=== PATIENT | female | born 1990 | race Caucasian/White ===

== ENCOUNTER 2017-05-03 18:52 | Emergency (ER) | payer SELFPAY ==
[2017-05-03 19:13] VITALS: BP 105/57; PULSE 104; TEMP 98; BMI 26.7
[2017-05-03] MEDS ORDERED: ACETAMINOPHEN 325 MG TABLET (FP) PO ONE (19:51)
--- NOTE | 2017-05-03 19:56 | PDOC ---
History of Present Illness - General Chief Complaint: Abscess Boil Stated Complaint: ABSCESS BOIL/11 WKS Time Seen by Provider: 05/03/17 19:17 - History of Present Illness Initial Comments: 05/03/17 19:52 CHIEF COMPLAINT: bump HISTORY OF PRESENT ILLNESS: 27 yo 11 week F presents to fast track with "bump to vagina." Patient reports pain to R side of vagina x 2 days. She states "when I was pushing it earlier there was pus coming out." PAST MEDICAL HISTORY: Denies past medical history FAMILY HISTORY: Denies SOCIAL HISTORY:Denies tobacco, alcohol, illicit drug use. SURGICAL HISTORY: Denies ALLERGIES: shellfish REVIEW OF SYSTEMS General/Constitutional: Denies fever or chills. Denies weakness, weight change. HEENT: Denies change in vision. Denies ear pain or discharge. Denies sore throat. Cardiovascular: Denies chest pain or shortness of breath. Respiratory: Denies cough, wheezing, or hemoptysis. Gastrointestinal: Denies nausea, vomiting, diarrhea or constipation. Denies rectal bleeding. Genitourinary: Bump to vagina. Denies dysuria, frequency, or change in urination. Musculoskeletal: Denies joint or muscle swelling or pain. Denies neck or back pain. Skin: Denies rash or easy bruising. Neurologic: Denies headache, vertigo, loss of consciousness, or loss of sensation. PHYSICAL EXAM General Appearance: Well-appearing, appropriately dressed. No apparent distress. HEENT: EOMI, PERRLA, normal ENT inspection, normal voice, TMs normal, pharynx normal. No conjunctival pallor. No photophobia, scleral icterus. Respiratory/Chest: Lungs CTAB. Cardiovascular: RRR. S1, S2. Genitourinary: Mildly tender, pea-sized, mobile nodule to R labia. No fluctuance. Musculoskeletal/Extremities: Normal inspection. FROM of all extremities, normal capillary refill. Pelvis Stable. No CVA tenderness. No tenderness to extremities, pedal edema, swelling, erythema or deformity. Integumentary: Appropriate color, dry, warm. No cyanosis, erythema, jaundice or rash Neurologic: manager servicing II-XII intact. Fully oriented, alert. Appropriate mood/affect. Motor strength 5/5. No appreciable EOM palsy, facial droop or sensory deficit. 07/29/17 17:14 Past History - Past Medical History Allergies/Adverse Reactions: Allergies Allergy/AdvReac Type Severity Reaction Status Date / Time No Known Drug Allergies Allergy Verified 05/03/17 19:09 shellfish derived Allergy Verified 05/03/17 19:09 Home Medications: Ambulatory Orders Acetaminophen [Tylenol -] 500 mg PO Q6H PRN #28 tablet 05/03/17 Other medical history: Pt denies - Psycho/Social/Smoking Cessation Hx Suicidal Ideation: No Smoking History: Current every day smoker Number of Cigarettes Smoked Daily: 3 Information on smoking cessation initiated: No Hx Alcohol Use: No Drug/Substance Use Hx: Yes (PCP) *Physical Exam - Vital Signs Last Vital Signs Temp Pulse Resp BP Pulse Ox 98.0 F 104 H 19 105/57 97 05/03/17 19:10 05/03/17 19:10 05/03/17 19:10 05/03/17 19:10 05/03/17 19:10 Medical Decision Making - Medical Decision Making 05/03/17 19:56 27 yo 11 week F presents to fast track with "bump to vagina." Small bartholin's cyst appreciated; I&D not possible at this time. Will treat conservatively. Advised patient to use warm soaks and to return if cyst increases in size. Advised patient to f/u with OBGYN for further evaluation and monitoring of . Patient reports she would like termination next week. Advised patient to discuss termination procedure with OBGYN as planned. *DC/Admit/Observation/Transfer Diagnosis at time of Disposition: Bartholin cyst - Discharge Dispostion Disposition: HOME Condition at time of disposition: Stable Admit: No - Prescriptions Prescriptions: Acetaminophen [Tylenol -] 500 mg PO Q6H PRN #28 tablet PRN Reason: Pain - Referrals - Patient Instructions Printed Discharge Instructions: DI for Bartholin Gland Cyst Additional Instructions: Please use warm soaks as discussed - 15 minutes each time, 4-5 times a day. If you experience fever, vomiting, diarrhea, or the cyst increases in size, please return to the ER. You may take Tylenol for pain. Please follow up with your OBGYN as planned.
[2017-05-03] MEDS ORDERED: ACETAMINOPHEN 325 MG TABLET (FP) ONE (19:58)
== END 2017-05-03 20:15 | disposition home or self-care (01) ==
LOC: JERFT 18:52
DX: O26.891 Other specified pregnancy related conditions, first trimester (principal); N75.0 Cyst of Bartholin's gland; Z3A.11 11 weeks gestation of pregnancy
CPT/HCPCS: 99281-25

== ENCOUNTER 2017-06-10 12:47 | Emergency (ER) | payer OTHER ==
[2017-06-10 13:10] VITALS: BMI 29.8
[2017-06-10] MEDS ORDERED: ACETAMINOPHEN 325 MG TABLET (FP) PO ONE (13:31)
[2017-06-10] MEDS ORDERED: SODIUM CHLORIDE 1,000 ML IV STA (13:31)
--- NOTE | 2017-06-10 14:05 | PDOC ---
History of Present Illness - General History Source: Patient Exam Limitations: No Limitations - History of Present Illness Initial Comments: 06/10/17 14:30 27 y/o F (, LMP: 01/18/17) with a PMHx of asthma presents to the ED with dysuria for a few days. Patient reports associated RLQ pain and R flank pain. She took Tylenol with some relief. She has a history of UTIs. She denies hematuria. She denies fever or chills. Denies nausea, vomiting, diarrhea. Denies vaginal bleeding or discharge. She denies chest pain, SOB. <Maria Eugenia Mcelroy - Last Filed: 06/10/17 14:30> - General History Source: Patient Exam Limitations: No Limitations <Willi Lemon - Last Filed: 06/10/17 15:01> - General Chief Complaint: Pain, Acute Stated Complaint: BACK, ABD PAIN (20 WKS ) Time Seen by Provider: 06/10/17 13:24 Past History <Maria Eugenia Mcelroy - Last Filed: 06/10/17 14:30> - Past Medical History Asthma: Yes - Reproductive History Is Patient Now?: Yes (#): 4 Para: 1 - Immunization History Immunization Up to Date: Yes - Psycho/Social/Smoking Cessation Hx Suicidal Ideation: No Smoking History: Former smoker Have you smoked in the past 12 months: Yes Number of Cigarettes Smoked Daily: 3 If you are a former smoker, when did you quit?: 1 month ago Information on smoking cessation initiated: No Hx Alcohol Use: No Drug/Substance Use Hx: No <Willi Lemon - Last Filed: 06/10/17 15:01> - Past Medical History Allergies/Adverse Reactions: Allergies Allergy/AdvReac Type Severity Reaction Status Date / Time No Known Drug Allergies Allergy Verified 06/10/17 13:07 shellfish derived Allergy Verified 06/10/17 13:07 Home Medications: Ambulatory Orders Acetaminophen [Tylenol -] 500 mg PO Q6H PRN #28 tablet 05/03/17 Cephalexin [Keflex] 500 mg PO Q8H #27 capsule 06/10/17 Review of Systems - Review of Systems Able to Perform ROS?: Yes Comments:: 06/10/17 14:30 GENERAL/CONSTITUTIONAL: No fever or chills. No weakness. HEAD, EYES, EARS, NOSE AND THROAT: No change in vision. No ear pain or discharge. No sore throat. CARDIOVASCULAR: No chest pain or shortness of breath. RESPIRATORY: No cough, wheezing, or hemoptysis. GASTROINTESTINAL: (+) RLQ pain. No nausea, vomiting, diarrhea or constipation. GENITOURINARY:(+) dysuria, R flank pain. No frequency. MUSCULOSKELETAL: No joint or muscle swelling or pain. No neck or back pain. SKIN: No rash NEUROLOGIC: No headache, vertigo, loss of consciousness, or change in strength/ sensation. ENDOCRINE: No increased thirst. No abnormal weight change. HEMATOLOGIC/LYMPHATIC: No anemia, easy bleeding, or history of blood clots. ALLERGIC/IMMUNOLOGIC: No hives or skin allergy. <Maria Eugenia Mcelroy - Last Filed: 06/10/17 14:30> *Physical Exam - Vital Signs Last Vital Signs Temp Pulse Resp BP Pulse Ox 98.4 F 89 18 114/51 100 06/10/17 13:08 06/10/17 13:08 06/10/17 13:08 06/10/17 13:08 06/10/17 13:08 - Physical Exam Comments: 06/10/17 14:30 GENERAL: Awake, alert, and fully oriented, in no acute distress HEAD: No signs of trauma EYES: PERRLA, EOMI, sclera anicteric, conjunctiva clear ENT: Auricles normal inspection, hearing grossly normal, nares patent, oropharynx clear without exudates. Moist mucosa NECK: Normal ROM, supple, no lymphadenopathy, JVD, or masses LUNGS: Breath sounds equal, clear to auscultation bilaterally. No wheezes, and no crackles HEART: Regular rate and rhythm, normal S1 and S2, no murmurs, rubs or gallops ABDOMEN: (+) Right CVA tenderness, gravid, right suprapubic tenderness. Normoactive bowel sounds. No guarding, no rebound. No masses EXTREMITIES: Normal range of motion, no edema. No clubbing or cyanosis. No cords, erythema, or tenderness NEUROLOGICAL: Cranial nerves II through XII grossly intact. Normal speech, normal gait SKIN: Warm, Dry, normal turgor, no rashes or lesions noted. <Maria Eugenia Mcelroy - Last Filed: 06/10/17 14:30> - Vital Signs Last Vital Signs Temp Pulse Resp BP Pulse Ox 98.4 F 89 18 114/51 100 06/10/17 13:08 06/10/17 13:08 06/10/17 13:08 06/10/17 13:08 06/10/17 13:08 <Willi Lemon - Last Filed: 06/10/17 15:01> ED Treatment Course - LABORATORY CBC & Chemistry Diagram: 06/10/17 13:46 06/10/17 13:46 - ADDITIONAL ORDERS Additional order review: Laboratory Results 06/10/17 13:46 Urine Color Yellow Urine Appearance Cloudy Urine pH 8.0 Urine Protein 1+ H Urine Glucose (UA) Negative Urine Ketones Negative Urine Blood 1+ H Urine Nitrite Positive Urine Bilirubin Negative Urine Urobilinogen Negative Ur Leukocyte Esterase 2+ H Urine RBC 1 Urine WBC 16 Ur Epithelial Cells Rare Urine Bacteria Many Urine Mucus Rare 06/10/17 13:46 RBC 3.51 L MCV 92.5 MCHC 33.2 RDW 12.6 MPV 8.1 Neutrophils % 82.8 Lymphocytes % 10.1 Monocytes % 5.0 Eosinophils % 1.7 Basophils % 0.4 - Medications Given in the ED: ED Medications Discontinued Medications Generic Name Dose Route Start Last Admin Trade Name Freq PRN Reason Stop Dose Admin Acetaminophen 650 mg 06/10/17 13:31 06/10/17 13:43 Tylenol - PO 06/10/17 13:32 650 mg ONCE ONE Administration <Maria Eugenia Mcelroy - Last Filed: 06/10/17 14:30> - LABORATORY CBC & Chemistry Diagram: 06/10/17 13:46 06/10/17 13:46 - Medications Given in the ED: ED Medications Discontinued Medications Generic Name Dose Route Start Last Admin Trade Name Freq PRN Reason Stop Dose Admin Acetaminophen 650 mg 06/10/17 13:31 06/10/17 13:43 Tylenol - PO 06/10/17 13:32 650 mg ONCE ONE Administration <Willi Lemon - Last Filed: 06/10/17 15:01> Medical Decision Making - Medical Decision Making 06/10/17 14:05 A portion of this note was documented by scribe services under my direction. I have reviewed the details of the note, within reason, and agree with the documentation with the following case summary and management plan written by me. Patient treated in the ED. Nursing notes are reviewed and incorporated into the medical decision-making. Vital signs reviewed. Peripheral IV access obtained by the nurse, laboratory studies are drawn and sent, reviewed and interpreted by myself. Vital Signs Temp Pulse Resp BP Pulse Ox 98.4 F 89 18 114/51 100 06/10/17 13:08 06/10/17 13:08 06/10/17 13:08 06/10/17 13:08 06/10/17 13:08 27-year-old female with past medical history asthma, 131, 20 weeks , last menstrual period, January 18, presents with dysuria, some pelvic pain and right flank pain for 2 days. Patient reports this feels like her prior polynephritis. Denies nausea, vomiting, fevers. Denies vaginal bleeding or discharge. The patient appears chronically to have Pollner [employer]. We'll obtain labs and a urinalysis and urine culture. Alternate, patient should go up to labor and delivery unit for heart monitoring. 06/10/17 14:49 CBC, BMP 06/10/17 13:46 06/10/17 13:46 CMP Sodium 139 mmol/L (136-145) 06/10/17 13:46 Potassium 3.8 mmol/L (3.5-5.1) 06/10/17 13:46 Chloride 104 mmol/L (98-107) 06/10/17 13:46 Carbon Dioxide 28 mmol/L (21-32) 06/10/17 13:46 Anion Gap 7 (8-16) L 06/10/17 13:46 BUN 7 mg/dL (7-18) 06/10/17 13:46 Creatinine 0.6 mg/dL (0.55-1.02) 06/10/17 13:46 Creat Clearance w eGFR > 60 (>60) 06/10/17 13:46 Random Glucose 91 mg/dL (74-106) 06/10/17 13:46 Calcium 8.7 mg/dL (8.5-10.1) 06/10/17 13:46 Total Bilirubin 0.2 mg/dL (0.2-1.0) 06/10/17 13:46 AST 20 U/L (15-37) 06/10/17 13:46 ALT 40 U/L (12-78) 06/10/17 13:46 Alkaline Phosphatase 60 U/L (45-117) 06/10/17 13:46 Total Protein 6.0 g/dl (6.4-8.2) L 06/10/17 13:46 Albumin 2.8 g/dl (3.4-5.0) L 06/10/17 13:46 Lipase 68 U/L (73-393) L 06/10/17 13:46 Urine Test Results Urine Color Yellow 06/10/17 13:46 Urine Appearance Cloudy 06/10/17 13:46 Urine pH 8.0 (5.0-8.0) 06/10/17 13:46 Urine Protein 1+ (NEGATIVE) H 06/10/17 13:46 Urine Glucose (UA) Negative (NEGATIVE) 06/10/17 13:46 Urine Ketones Negative (NEGATIVE) 06/10/17 13:46 Urine Blood 1+ (NEGATIVE) H 06/10/17 13:46 Urine Nitrite Positive (NEGATIVE) 06/10/17 13:46 Urine Bilirubin Negative (NEGATIVE) 06/10/17 13:46 Ur Leukocyte Esterase 2+ (NEGATIVE) H 06/10/17 13:46 Urine RBC 1 /hpf (0-3) 06/10/17 13:46 Urine WBC 16 /hpf (3-5) 06/10/17 13:46 Ur Epithelial Cells Rare /hpf (FEW) 06/10/17 13:46 Urine Bacteria Many /hpf (NONE SEEN) 06/10/17 13:46 Urine Mucus Rare 06/10/17 13:46 Pt with pyelopnehritis. Will give a dose of ceftriaxone and have patient take PO cephalexin as an outpatient. Will call L&D and send pt to L&D for heart monitoring. 06/10/17 14:57 I had spoken to Paola from L&D. They will accept patient to the L&D. If cleared , patient can be d/c'd home. <Willi Lemon - Last Filed: 06/10/17 15:01> *DC/Admit/Observation/Transfer - Attestations Scribe Attestion: 06/10/17 14:30 Documentation prepared by Maria Eugenia Mcelroy, acting as medical reception specialist for Willi Lemon MD. <Maria Eugenia Mcelroy - Last Filed: 06/10/17 14:30> - Discharge Dispostion Admit: No <Willi Lemon - Last Filed: 06/10/17 15:01> Diagnosis at time of Disposition: Pyelonephritis - Discharge Dispostion Disposition: HOME Condition at time of disposition: Stable - Prescriptions Prescriptions: Cephalexin [Keflex] 500 mg PO Q8H #27 capsule - Referrals Referrals: STAFF,NOT ON [Primary Care Provider] - - Patient Instructions Printed Discharge Instructions: DI for Kidney Infection Additional Instructions: You have received a first dose of ceftriaxone (IV antibiotics here). Starting tomorrow, please take 9 more days of oral antibiotics. It is 500 mg cephalexin every 8 hours for 9 more days. Take 650 mg tylenol every 4 hours as needed for pain. Please go directly to labor and delivery unit for heart monitoring and ultrasound.
[2017-06-10 14:07] LABS: BASOPHIL 0.4 % (0-2.0); EOSINOPHIL 1.7 % (0-4.5); MCH 30.7 pg (25.7-33.7); MCHC 33.2 g/dl (32.0-36.0); MEAN CELL VOLUME 92.5 fl (80-96); MEAN PLT VOLUME 8.1 fl (7.5-11.1); NEUTROPHILS 82.8 % (42.8-82.8); PLATELET COUNT 285 K/MM3 (134-434); RDW 12.6 % (11.6-15.6); WHITE BLOOD COUNT 15.6 K/mm3 (4.0-10.0)
[2017-06-10 14:08] LABS: URINE APPEARANCE CLOUDY; URINE BILIRUBIN NEGATIVE (NEGATIVE); URINE BLOOD 1+ (NEGATIVE); URINE COLOR YELLOW; URINE GLUCOSE (UA) NEGATIVE (NEGATIVE); URINE KETONE NEGATIVE (NEGATIVE); URINE NITRITE POSITIVE (NEGATIVE); URINE UROBILINOGEN NEGATIVE mg/dL (0.2-1.0)
[2017-06-10 14:19] LABS: URINE LEUK ESTERASE 2+ (NEGATIVE); URINE PROTEIN 1+ (NEGATIVE)
[2017-06-10 14:23] LABS: URINE BACTERIA MANY /hpf (NONE SEEN); URINE MUCUS RARE; URINE RBC 1 /hpf (0-3); URINE WBC 16 /hpf (3-5)
[2017-06-10 14:34] LABS: ALBUMIN 2.8 g/dl (3.4-5.0); ALK PHOS 60 U/L (45-117); ANION GAP 7 (8-16); BILIRUBIN,TOTAL 0.2 mg/dL (0.2-1.0); CALCIUM 8.7 mg/dL (8.5-10.1); CO2 28 mmol/L (21-32); CREATININE 0.6 mg/dL (0.55-1.02); GLUCOSE,RANDOM 91 mg/dL (74-106); SGOT/AST 20 U/L (15-37); SGPT/ALT 40 U/L (12-78)
[2017-06-10] MEDS ORDERED: CEFTRIAXONE 1 GM in DEXTROSE 5%-WATER - 50 ML IVPB ONE (14:49)
[2017-06-10 16:49] VITALS: BP 114/61; PULSE 95; TEMP 98.7
== END 2017-06-10 16:58 | disposition home or self-care (01) ==
LOC: JER 12:47
PROC: 3E0337Z Introduction of Electrolytic and Water Balance Substance into Peripheral Vein, Percutaneous Approach (ICD-10-PCS; principal; 2017-06-10)
PROC: 3E03329 Introduction of Other Anti-infective into Peripheral Vein, Percutaneous Approach (ICD-10-PCS; 2017-06-10)
DX: O23.02 Infections of kidney in pregnancy, second trimester (principal); B96.20 Unspecified Escherichia coli [E. coli] as the cause of diseases classified elsewhere; Z3A.20 20 weeks gestation of pregnancy
CPT/HCPCS: 36415; 80053; 81003; 81015; 83690; 85025; 87086; 87186; 99283-25